=== PATIENT | female | born 1975 | race Caucasian/White ===

== ENCOUNTER 2016-09-27 23:35 | Emergency (ER) | payer SELFPAY ==
[~2016-09-27] VITALS: Ht 172.7 cm; Wt 133.7 kg
[~2016-09-27 23:35] MED LIST: ACET500T98
[2016-09-27 23:57] VITALS: Ht 172.7 cm; Wt 133.7 kg
[2016-09-28] MEDS ORDERED: predniSONE 20 MG TAB PO ONE (03:30)
[2016-09-28] MEDS ORDERED: BEN25 PO (03:34)
[2016-09-28] MEDS ORDERED: PRED20TA PO (03:34)
[2016-09-28 03:52] VITALS: BP 130/80; PULSE 77; RESP 18; TEMP 98.3
--- NOTE | 2016-09-28 05:55 | ERD ---
ER Documentation Chief Complaint Date/Time DATE: 09/28/16 TIME: 05:53 Chief Complaint generalized body itching since yesterday worse today HPI This patient is a 41-year-old female who presents to the emergency department complaining of generalized body itching since yesterday but worsening today. She has some hives noted. She has some swelling of the upper extremities bilaterally. She was in a new job at a [employer] yesterday and may have come into contact with some aggravating detergents. She has never had these symptoms in the past. She denies shortness of breath, wheezing, or other symptoms. ROS All systems reviewed and are negative except as per history of present illness. Medications Home Meds Active Scripts Prednisone* (Prednisone*) 20 Mg Tab, 40 MG PO DAILY for 4 Days, #8 TAB Prov:TONY SPICER PA-C 09/28/16 Diphenhydramine Hcl* (Benadryl*) 25 Mg Cap, 25 MG PO Q6, #30 CAP Prov:TONY SPICER PA-C 09/28/16 Reported Medications Acetaminophen (Tylenol) 500 Mg Tab 08/28/11 Allergies Allergies: Coded Allergies: No Known Allergy (Unverified , 08/28/11) PMhx/Soc Medical and Surgical Hx: pt denies Medical Hx, pt denies Surgical Hx History of Surgery: No Anesthesia Reaction: No Hx Neurological Disorder: No Hx Respiratory Disorders: No Hx Cardiac Disorders: No Hx Psychiatric Problems: No Hx Miscellaneous Medical Probl: No Hx Alcohol Use: No Hx Substance Use: No Hx Tobacco Use: No Smoking Status: Never smoker Physical Exam Vitals Vital Signs Date Time Temp Pulse Resp B/P Pulse Ox O2 Delivery O2 Flow Rate FiO2 09/28/16 03:52 98.3 77 18 130/80 98 Room Air 09/27/16 23:57 97.9 91 18 148/82 98 Physical Exam Const: Nontoxic, well-appearing female in no acute distress. Head: Atraumatic Eyes: Normal Conjunctiva ENT: Normal External Ears, Nose and Mouth. Neck: Full range of motion..~ No meningismus. Resp: Clear to auscultation bilaterally. No wheezing. No findings consistent with respiratory distress. Cardio: Regular rate and rhythm, no murmurs Abd: Soft, non tender, non distended. Normal bowel sounds Skin: There is scattered urticaria noted to bilateral upper and lower extremities. No involvement of the torso. Back: No midline or flank tenderness Ext: No cyanosis, or edema Neur: Awake and alert Psych: Normal Mood and Affect Results 24 hrs Current Medications Medications (Trade) Dose Ordered Sig/Praful Route PRN Reason Start Time Stop Time Status Last Admin Dose Admin Prednisone (Prednisone) 40 mg ONCE ONCE PO 09/28/16 03:30 09/28/16 03:31 DC 09/28/16 03:36 Procedures/MDM 41-year-old female presents to the emergency department for generalized body itching. History and clinical examination is consistent with possible allergic etiology secondary to irritant that the patient came into contact with. The patient was given p.o. prednisone in the department. The patient is stable for outpatient management with a prescription for prednisone and Benadryl. She understood the discharge plan and diagnosis. I have low suspicion for acute respiratory distress syndrome, anaphylaxis, or other emergent conditions. Strict ER return precautions were discussed. Close follow-up with primary care physician was advised. Departure Diagnosis: Primary Impression: Rash and nonspecific skin eruption Condition: Fair Patient Instructions: Self-Care for Skin Rashes Ref[facility] Usted se maciel hecho un examen mdico de control que le indica que no est en evelin condicin que requiera tratamiento urgente en el Departamento de Emergencia. Un estudio ms profundo y el tratamiento de griggs condicin pueden esperar sin ningn riesgo hasta que usted sea atendida/o en el consultorio de griggs mdico o evelin cl loida. Es responsabilidad suya arreglar evelin troy para el seguimiento del aramis. MANEJO DE CONDICIONES NO URGENTES EN EL FUTURO 1) Si usted tiene un mdico de atencin primaria: Usted debera llamar a griggs mdico de atencin primaria antes de venir al departamento de emergencia. Despus de las horas de consultorio, griggs doctor o griggs asociado/a est disponible por telfono. El mdico o enfermero de jennifer en el servicio telefnico puede asesorarle por genet medio para atender el problema, o aramis contrario se puede programar evelin troy. 2) Si usted no tiene un mdico de atencin primaria: Llame al mdico o clnica de referencia que aparece abajo sasha las horas de consultorio para hacer evelin troy para que le vean. CLINICAS: [facility] [phone] [facility] [phone] [facility] [phone] [facility] [phone] [place] [id number] [phone] [facility]. [phone] [address] Additional Instructions: Follow up with your PCP within the next 1-3 days for a repeat evaluation. If you require a referral to a specialist, your Primary Care Provider may be able to provide this for you. In most patient cases, a referral is not required. If you have further questions regarding this matter, please ask your Primary Care Provider. Return the the emergency department immediately if symptoms worsen or change. If you have any questions regarding medications, ask your pharmacist or us before you leave. If any adverse reactions, occur while taking your medications, discontinue the treatment and return to the emergency department immediately. If any new or worsening symptoms, uncontrolled fevers, or other unexplained symptoms occur, return to the emergency department immediately. Take your medications as directed, and complete the entire course of treatment. TONY SPICER PA-C Sep 28, 2016 05:55
== END 2016-09-28 03:52 | disposition home or self-care (01) ==
LOC: EDBD 23:35 → FTE 23:35
DX: R21 Rash and other nonspecific skin eruption (principal)
CPT/HCPCS: 99283; J7512